=== PATIENT | female | born 1975 | race African-American/Black ===

== ENCOUNTER 2017-03-26 02:18 | Emergency (ER) | payer MEDICAID, OTHER ==
--- NOTE | 2017-03-26 02:36 | NUR ---
PT STATES SHE WANTS US TO FIX HER BROKEN TOOTH, PT ADVISED WE DO NOT FIX TEETH IN THE ER, PT STATES SHE WILL GO TO THE DENTIST IN THE MORNING INSTEAD
== END 2017-03-26 02:37 | disposition left against medical advice (07) ==
LOC: ER 02:23
DX: Z53.21 Procedure and treatment not carried out due to patient leaving prior to being seen by health care provider (principal)

== ENCOUNTER 2017-04-14 18:32 | Emergency (ER) | payer MEDICAID, OTHER ==
[~2017-04-14] VITALS: Ht 175.3 cm; Wt 59.9 kg
--- NOTE | 2017-04-14 18:40 | NUR ---
PT TO ED DT NECK, BACK, ELBOW, RIGHT KNEE PAIN SP FALL 1130 TODAY, NAD NOTED, VSS, WAITING FOR MD GILLIAN.
--- NOTE | 2017-04-14 19:20 | NUR ---
PA AT BS
[2017-04-14] MEDS ORDERED: IBUPROFEN 600 MG TABLET PO ONE ×2 (19:30→19:31)
[2017-04-14 20:15] VITALS: BP 120/80
--- NOTE | 2017-04-14 20:15 | NUR ---
Patient discharged to home in stable condition. Written and verbal after care instructions given. Patient verbalizes understanding of instruction.
== END 2017-04-14 20:16 | disposition home or self-care (01) ==
LOC: ER 18:37
DX: S16.1XXA Strain of muscle, fascia and tendon at neck level, initial encounter (principal); M54.9 Dorsalgia, unspecified; M25.561 Pain in right knee; M25.511 Pain in right shoulder; M25.521 Pain in right elbow; F17.200 Nicotine dependence, unspecified, uncomplicated; W10.8XXA Fall (on) (from) other stairs and steps, initial encounter; F10.10 Alcohol abuse, uncomplicated; Y93.89 Activity, other specified; Y92.89 Other specified places as the place of occurrence of the external cause; Y99.8 Other external cause status
CPT/HCPCS: 84703; 99282; A4606; Z7610

== ENCOUNTER 2017-06-29 09:40 | Emergency (ER) | payer OTHER ==
[~2017-06-29] VITALS: Ht 175.3 cm; Wt 62.1 kg
[2017-06-29 10:00] VITALS: BP 124/84
[2017-06-29] MEDS ORDERED: LIDOCAINE 0.5% HCL 50 ML VIAL ONE (11:39)
[2017-06-29] MEDS ORDERED: oxyCODONE/APAP (5/325 MG) 1 UDTAB TABLET ONE (11:54)
[2017-06-29] MEDS ORDERED: TDAP [DIPH/PERTUSSIS/TET] 0.5 ML VIAL IM ONE ×2 (12:00)
[2017-06-29] MEDS ORDERED: oxyCODONE/APAP (5/325 MG) 1 UDTAB TABLET PO ONE (12:00)
[2017-06-29] MEDS ORDERED: LIDOCAINE 1% INJ 50 ML MDV IJ ONE (12:00)
--- NOTE | 2017-06-29 12:15 | NUR ---
FOREIGN BODY BODY REMOVED BY LEONOR BARAJAS
--- NOTE | 2017-06-29 12:49 | NUR ---
Patient discharged to home in stable condition. Written and verbal after care instructions given. Patient verbalizes understanding of instruction.
== END 2017-06-29 12:50 | disposition home or self-care (01) ==
LOC: ER 09:42
DX: S60.452A Superficial foreign body of right middle finger, initial encounter (principal); F17.200 Nicotine dependence, unspecified, uncomplicated; X58.XXXA Exposure to other specified factors, initial encounter; Y93.89 Activity, other specified; Y92.89 Other specified places as the place of occurrence of the external cause; Y99.8 Other external cause status
CPT/HCPCS: 64450; 73140; 90471; 90715; 99284; 99406; A4606; J3490; Z7610

== ENCOUNTER 2017-07-01 14:40 | Inpatient (IN) | payer MEDICAID, OTHER ==
[~2017-07-01] VITALS: Ht 175.3 cm; Wt 62.1 kg
--- NOTE | 2017-07-01 14:50 | NUR ---
AAOX3, C/O RT HAND SWELLING W/ PAIN X >1WK S/P POKED BY CACTUS SEEN HERE 06/29/16 FOR SAME. RR IS EVEN AND UNLABORED WITH NAD NOTED. SKIN IS WARM AND DRY. SWAPNA ARNDT AT BS FOR EVAL.
[2017-07-01] MEDS ORDERED: IV NS 0.9% 1,000 ML BAG IV ONE (15:00)
[2017-07-01] MEDS ORDERED: VANCOMYCIN 1 GM in IV D5W 250 ML IV ONE (15:00)
[2017-07-01] MEDS ORDERED: PIPERACILLIN /TAZOBACTAM 3.375 G in IV D5W 50 ML IV ONE (15:00)
[2017-07-01] MEDS ORDERED: CLINDAMYCIN 600 MG in IV D5W 100 ML IV ONE (15:00)
[2017-07-01] MEDS ORDERED: ONDANSETRON HCL/PF 4 MG/2 ML VIAL IVP ONE (15:00)
[2017-07-01] MEDS ORDERED: MORPHINE SULFATE INJ 2 MG/ML DISP.SYRIN IV ONE (15:00)
[2017-07-01 15:20] LABS: BASOPHILS # (AUTO) 0.3 /CMM (0.0-0.2); BASOPHILS % (AUTO) 2.9 % (0.0-2.0); EOSINOPHILS # (AUTO) 0.1 /CMM (0.0-0.7); EOSINOPHILS % (AUTO) 0.7 % (0.0-6.0); HEMATOCRIT 36 % (33-45); HEMOGLOBIN 12.3 g/dL (11.5-14.8); LYMPHOCYTES # (AUTO) 1.3 /CMM (0.8-4.8); LYMPHOCYTES % (AUTO) 14.8 % (20.0-44.0); MEAN CORPUSCULAR HEMOGLOBIN 31 PG (26.0-33.0); MEAN CORPUSCULAR HGB CONC 34 g/dl (31.0-36.0); MEAN CORPUSCULAR VOLUME 91 fL (82-100); MONOCYTES # (AUTO) 0.3 /CMM (0.1-1.30); MONOCYTES % (AUTO) 3.8 % (2.0-12.0); NEUTROPHILS # (AUTO) 6.9 /CMM (1.8-8.9); NEUTROPHILS % (AUTO) 77.8 % (43.0-81.0); PLATELET COUNT (AUTO) 284 /CMM (150-450); RDW COEFFICIENT OF VARIATION 12.4 (11.5-15.0); RED BLOOD CELL COUNT(AUTO) 3.98 MIL/uL (4.0-5.2); WHITE BLOOD COUNT (AUTO) 8.9 K/uL (4.3-11.0)
[2017-07-01] MEDS ORDERED: MORPHINE SULFATE INJ 4 MG/ML DISP.SYRIN ONE (15:23)
[2017-07-01] MEDS ORDERED: ONDANSETRON HCL/PF 4 MG/2 ML VIAL ONE (15:23)
[2017-07-01 15:31] LABS: CREATININE 0.8 mg/dL (0.6-1.3); POTASSIUM 4.1 mmol/L (3.5-5.1)
[2017-07-01 15:35] LABS: INR 0.88 (0.87-1.13); PROTHROMBIN TIME 9.2 SECS (9.5-12.7)
[2017-07-01] MEDS ORDERED: CEPH-570 PO (15:47)
[2017-07-01] MEDS ORDERED: OXYC-133 PO (15:47)
[2017-07-01] MEDS ORDERED: ZOLPIDEM TARTRATE 5 MG TABLET PO PRN (17:30)
[2017-07-01] MEDS ORDERED: MAG HYDROX/AL HYDROX/SIMETH 30 ML UDC PO PRN (17:30)
[2017-07-01] MEDS ORDERED: MAGNESIUM HYDROXIDE 30 ML UDC PO PRN (17:30)
[2017-07-01] MEDS ORDERED: ACETAMINOPHEN 325 MG TABLET PO PRN (17:30)
[2017-07-01] MEDS ORDERED: MORPHINE SULFATE INJ 2 MG/ML DISP.SYRIN IV PRN (17:30)
[2017-07-01] MEDS ORDERED: CLINDAMYCIN IV RTU IN D5W 900 MG/50 ML PIGGYBACK IV SCH (17:30)
[2017-07-01] MEDS ORDERED: Z GUARD REMEDY 2 OZ OINT TP PRN (17:30)
[2017-07-01] MEDS ORDERED: ONDANSETRON HCL/PF 4 MG/2 ML VIAL IVP PRN (17:30)
[2017-07-01] MEDS ORDERED: FEE PK DOSING 1 MIN EA MC ONE (17:44)
--- NOTE | 2017-07-01 18:23 | NUR ---
FOOD TRAY SERVED AT
--- NOTE | 2017-07-01 18:43 | NUR ---
REPORT GIVEN TO MICHELLE RAMOS FOR CHRISSIE.
--- NOTE | 2017-07-01 18:53 | NUR ---
Patient is resting in er bed, no distress noted. ER bed in low position, side rails up. awaiting for MS bed assignment, will continue to monitor
[2017-07-01] MEDS ORDERED: HYDROMORPHONE 1 MG/1 ML DISP.SYRIN IV STA (20:39)
[2017-07-01] MEDS ORDERED: HYDROMORPHONE INJ 2 MG/ML DISP.SYRIN ONE (20:43)
--- NOTE | 2017-07-01 20:47 | NUR ---
report was given to RN for [place]
[2017-07-01] MEDS: CLINDAMYCIN 900 MG in IV D5W 50 ML IV SCH (21:00)
--- NOTE | 2017-07-01 21:10 | NUR ---
RN OPENING NOTES RECEIVED PATIENT FROM ER IN STABLE CONDITION. ALERT AND ORIENTED X4. VS STABLE. PATIENT C/O RIGHT HAND SWELLING WITH PAIN. S/P POKED BY CACTUS. NO SOB NOTED. RESPIRATIONS EVEN AND UNLABORED. BS X4. IV ACCESS AT LEFT AC 20 G PATENT AND INTACT, FLUSHING WELL WITH NS, NO REDNESS OR INFILTRATION NOTED. BED IN LOW AND LOCKED POSITION, SIDE RAILS X2. CALL LIGHT WITHIN EASY REACH. WILL CONTINUE TO MONITOR AND ASSESS DURING THE SHIFT.
[2017-07-01 22:00] VITALS: BP 103/64
[2017-07-01] MEDS ORDERED: PIPERACILLIN /TAZOBACTAM 3.375 G VIAL IV ONE (22:54)
[2017-07-01] MEDS ORDERED: VANCOMYCIN 1 GM VIAL ONE (22:56)
[2017-07-01] MEDS: PIPERACILLIN /TAZOBACTAM 3.375 G in IV D5W 50 ML IV SCH (23:41)
[2017-07-02] VITALS (9 sets, daily range): BP systolic 108–138; BP diastolic 64–81
[2017-07-02] MEDS: VANCOMYCIN 0.75 GM in IV D5W 250 ML IV SCH ×2 (00:34→09:00)
[2017-07-02] MEDS ORDERED: PIPERACILLIN /TAZOBACTAM 3.375 G VIAL IV ONE (04:47)
[2017-07-02] MEDS ORDERED: CLINDAMYCIN 900 MG/6 ML VIAL ONE (05:12)
[2017-07-02] MEDS: CLINDAMYCIN 900 MG in IV D5W 50 ML IV SCH ×3 (05:59→21:12)
[2017-07-02] MEDS: PIPERACILLIN /TAZOBACTAM 3.375 G in IV D5W 50 ML IV SCH ×3 (06:50→19:52)
--- NOTE | 2017-07-02 07:30 | NUR ---
RN CLOSING NOTES PATIENT IS SLEEPING INH BED, EASY TO AROUSE, ALERT AND ORIENTED X4. VS STABLE. NO SOB NOTED. RESPIRATIONS EVEN AND UNLABORED. IV ACCESS AT LEFT AC 20 G PATENT AND INTACT, NO REDNESS OR INFILTRATION NOTED. ALL NEEDS ARE MET AND MEDICATIONS GIVEN PER MD ORDER. BED IN LOW AND LOCKED POSITION, SIDE RAILS X2. CALL LIGHT WITHIN EASY REACH. WILL ENDORSE TO RN DAY SHIFT FOR CHRISSIE.
[2017-07-02 07:47] LABS: BASOPHILS % (AUTO) 0.5 % (0.0-2.0); EOSINOPHILS # (AUTO) 0.2 /CMM (0.0-0.7); EOSINOPHILS % (AUTO) 2.9 % (0.0-6.0); HEMATOCRIT 35 % (33-45); HEMOGLOBIN 11.8 g/dL (11.5-14.8); LYMPHOCYTES # (AUTO) 1.7 /CMM (0.8-4.8); MEAN CORPUSCULAR HEMOGLOBIN 31 PG (26.0-33.0); MEAN CORPUSCULAR HGB CONC 34 g/dl (31.0-36.0); MEAN CORPUSCULAR VOLUME 94 fL (82-100); MONOCYTES # (AUTO) 0.4 /CMM (0.1-1.30); MONOCYTES % (AUTO) 6.3 % (2.0-12.0); NEUTROPHILS # (AUTO) 4.2 /CMM (1.8-8.9); NEUTROPHILS % (AUTO) 64.3 % (43.0-81.0); PLATELET COUNT (AUTO) 256 /CMM (150-450); RDW COEFFICIENT OF VARIATION 13.6 (11.5-15.0); RED BLOOD CELL COUNT(AUTO) 3.74 MIL/uL (4.0-5.2); WHITE BLOOD COUNT (AUTO) 6.5 K/uL (4.3-11.0)
--- NOTE | 2017-07-02 08:05 | NUR ---
RN OPENING NOTES RECEIVED PATIENT RESTING COMFORTABLY IN BED. AOX4. RIGHT HAND SWELLING NOTED FOR RIGHT HAND FLEXOR TENOSYNOVITIS. CARE PLAN DISCUSSED WITH DR. QUINTERO. ORDERS GIVEN FOR CONSULT WITH DR. PEREZ. WILL CONTACT DR. PEREZ. IV ACCESS ON THE LEFT AC20G PATENT AND INTACT. RESPIRATIONS EVEN AND UNLABORED. NO ACUTE DISTRESS. PAIN IN THE RIGHT HAND. DENIES SOB AND CP. SATURATING ADEQUATELY ON RA. BED LOCKED IN THE LOWEST POSITION WITH SIDE RAIL UP X2. CALL LIGHT WITHIN REACH. WILL CONTINUE TO MONITOR, ASSESS AND EDUCATE PATIENT THROUGHOUT SHIFT.
[2017-07-02 08:18] LABS: CALCIUM, SERUM 8.5 mg/dL (8.5-10.1); CREATININE 0.8 mg/dL (0.6-1.3); MAGNESIUM 1.8 mg/dL (1.8-2.4); PHOSPHORUS 3.4 mg/dL (2.5-4.9); POTASSIUM 4.5 mmol/L (3.5-5.1)
[2017-07-02] MEDS ORDERED: BACITRACIN 50000 UNITS/VIAL ONE (11:56)
--- NOTE | 2017-07-02 11:56 | NUR ---
RN NOTES PATIENT TO GO TO OR FOR RIGHT HAND WASHOUT AND DEBRIDEMENT. DISCUSSED WITH DR. PEREZ. ALL CONSENT SIGNED. VERBALIZED UNDERSTANDING. PHARMACY STILL HAS NOT BROUGHT VANCO. CALLED PHARMACY AT 0900. PATIENT TO HAVE TEST PER OR POLICY. WILL CARRY OUT.
[2017-07-02] MEDS ORDERED: LIDOCAINE 0.5% HCL 50 ML VIAL ONE (12:37)
--- NOTE | 2017-07-02 12:45 | NUR ---
RN NOTES PATIENT TAKEN TO OR IN STABLE CONDITION. WILL WAIT FOR PATIENT TO RETURN.
[2017-07-02] MEDS ORDERED: MIDAZOLAM HCL 2 MG/2ML VIAL ONE (12:49)
[2017-07-02] MEDS ORDERED: FENTANYL PF 100MCG/2ML AMPUL ONE (12:49)
[2017-07-02] MEDS ORDERED: ANESTHESIA TRAY IN PYXIS 1 EA TRAY MC ONE (12:55)
[2017-07-02] MEDS ORDERED: LIDOCAINE 2%-EPI 1:100,000 30 ML VIAL IJ ONE (13:00)
[2017-07-02] MEDS ORDERED: BUPIVACAINE 0.5 % PF 150 MG/30 ML VIAL ONE (13:23)
--- NOTE | 2017-07-02 13:26 | NUR ---
RN NON ADMIN NOTES NO VANCO BROUGHT TO THE FLOOR. VANCO SENT TO THE OR. SPOKE WITH PHARMACISTS ANASTACIA. RUPA TAKEN TO OR. ALL MEDS GIVEN IN OR. WILL FOLLOW UP.
--- NOTE | 2017-07-02 15:12 | NUR ---
MICHELLE MARTINEZ NOTES ZOSYN GIVEN IN THE ER. Addendum: 07/02/17 at 1513 by SAQIB HASSAN RN ZOSYN GIVEN IN THE OR.
--- NOTE | 2017-07-02 19:35 | NUR ---
MS RN OPENING NOTES RECEIVED PT IN BED AWAKE,ALERT,VERBALLY RESPONSIVE,ON ROOM AIR, RESPIRATIONS EVEN,UNLABORED,NO SOB NOTED,DENIES ANY PAIN OR DISCOMFORT AT THIS TIME.IV SITE INTACT,PATENT.CALL LIGHT WITHIN REACH. ATTENDED ALL NEEDS. WILL CONTINUE TO MONITOR ACCORDINGLY.
[2017-07-02] MEDS ORDERED: VANCOMYCIN 0.75 GM in IV D5W 250 ML IV SCH (21:00)
[2017-07-02] MEDS: MORPHINE SULFATE INJ 4 MG/ML DISP.SYRIN IV PRN (21:13)
--- NOTE | 2017-07-02 22:57 | NUR ---
RN CLOSING NOTES PATIENT RESTING COMFORTABLY IN BED. AOX4. RIGHT HAND BANDAGED AND WRAPPED. IV ACCESS ON THE LEFT AC 20G PATENT AND INTACT. RESPIRATIONS EVEN AND UNLABORED. NO ACUTE DISTRESS. PAIN IN THE RIGHT HAND. DENIES SOB AND CP. SATURATING ADEQUATELY ON RA. BED LOCKED IN THE LOWEST POSITION WITH SIDE RAIL UP X2. CALL LIGHT WITHIN REACH. WILL ENDORSE TO NIGHT RN FOR CHRISSIE.
[2017-07-03] MEDS: PIPERACILLIN /TAZOBACTAM 3.375 G in IV D5W 50 ML IV SCH ×4 (00:36→18:52)
[2017-07-03] MEDS: CLINDAMYCIN 900 MG in IV D5W 50 ML IV SCH ×3 (05:08→22:36)
[2017-07-03] MEDS: MORPHINE SULFATE INJ 4 MG/ML DISP.SYRIN IV PRN ×4 (06:52→23:00)
--- NOTE | 2017-07-03 07:05 | NUR ---
MS RN CLOSING NOTES PT IN BED,OM ROOM AIR NO SOB,NO APPARENT DISTRESS NOTED.COMPLAINED OF PAIN MORPHINE 2MG GIVEN ORDERED.CALL LIGHT WITHIN REACH. IV SITE INTACT, PATENT,ATTENDED ALL NEEDS.WILL CONTINUE TO MONITOR
--- NOTE | 2017-07-03 07:25 | NUR ---
RN OPENING NOTES RECEIVED PATIENT RESTING COMFORTABLY IN BED. AOX4. RIGHT HAND IN ADITYA BANDAGE. IV ACCESS ON THE LEFT AC20G PATENT AND INTACT. RESPIRATIONS EVEN AND UNLABORED. NO ACUTE DISTRESS. PAIN IN THE RIGHT HAND. DENIES SOB AND CP. SATURATING ADEQUATELY ON RA. BED LOCKED IN THE LOWEST POSITION WITH SIDE RAIL UP X2. CALL LIGHT WITHIN REACH. WILL CONTINUE TO MONITOR, ASSESS AND EDUCATE PATIENT THROUGHOUT SHIFT.
[2017-07-03 08:00] VITALS: BP 106/58
[2017-07-03 08:36] LABS: CREATININE 0.9 mg/dL (0.6-1.3); POTASSIUM 4.2 mmol/L (3.5-5.1)
[2017-07-03 08:37] LABS: BASOPHILS % (AUTO) 0.4 % (0.0-2.0); EOSINOPHILS % (AUTO) 0.1 % (0.0-6.0); HEMATOCRIT 36 % (33-45); LYMPHOCYTES # (AUTO) 1.7 /CMM (0.8-4.8); LYMPHOCYTES % (AUTO) 15.5 % (20.0-44.0); MEAN CORPUSCULAR HEMOGLOBIN 31 PG (26.0-33.0); MEAN CORPUSCULAR HGB CONC 33 g/dl (31.0-36.0); MEAN CORPUSCULAR VOLUME 94 fL (82-100); MONOCYTES # (AUTO) 0.6 /CMM (0.1-1.30); MONOCYTES % (AUTO) 5.4 % (2.0-12.0); NEUTROPHILS # (AUTO) 8.5 /CMM (1.8-8.9); NEUTROPHILS % (AUTO) 78.6 % (43.0-81.0); PLATELET COUNT (AUTO) 304 /CMM (150-450); RDW COEFFICIENT OF VARIATION 13.8 (11.5-15.0); RED BLOOD CELL COUNT(AUTO) 3.85 MIL/uL (4.0-5.2); WHITE BLOOD COUNT (AUTO) 10.9 K/uL (4.3-11.0)
[2017-07-03] MEDS: HYDROCODONE/APAP 5/325MG 1 EACH TABLET PO PRN ×2 (09:39→13:19)
--- NOTE | 2017-07-03 14:00 | NUR ---
RN NOTES IV DISLODGED. NEW IV PLACED IN THE RIGHT UPPER ARM PATIENT TOLERATED. ONE ATTEMPT. 20G.
--- NOTE | 2017-07-03 14:22 | NUR ---
Social service consult requested by Dr. Bernstein for home health and legality issues. Pt. is a 41 year old female who was admitted to [facility] for Flexor Tenosynovitis. SW met with pt. bedside. Pt. is alert and oriented x 4. Pt. informed SW that she is having legal issues with her property management company and has to evict by July 25, 2017. Pt. would like to extend her stay for another few weeks. SW informed pt. she can give her referrals to legal aids who might be able to assist her. SW gave pt. legal referrals to the following: [facility] [address] [place] [address] [employer] [email or web address] [facility] [address] [phone] [employer] [email or web address] HOUSING, RENTAL& HABITABILITY PROBLEMS: [facility] [address] [address] www.[employer] [address] [place] [address] (See website for more locations and hours) [email or web address] [facility] [address] [facility] [address] [email or web address] [place] [employer] [address] [place] [address] (See website for more locations and hours) [email or web address] [employer] [facility] [address] [facility] [address] [email or web address] [facility] [employer] Advisor [address] [address] www.[employer] No other social service needs are required at this time. SW is available if needed. BLANCA informed renal case manager Geetha Faustin regarding pt. wanting home health upon discharge.
[2017-07-03] MEDS: LACTOBACILLUS RHAMNOSUS GG 1 EACH CAP.SPRINK PO SCH (16:13)
[2017-07-03] MEDS ORDERED: HYDROMORPHONE INJ 2 MG/ML DISP.SYRIN IV PRN (18:00)
--- NOTE | 2017-07-03 18:00 | NUR ---
RN NOTES MD ORDERS GIVEN TO GIVE MORPHINE ONE TIME 2MG IV FOR SEVERE PAIN. WILL PLACE ORDERS GIVEN.
[2017-07-03] MEDS ORDERED: MORPHINE SULFATE INJ 4 MG/ML DISP.SYRIN IV ONE (19:00)
--- NOTE | 2017-07-03 19:15 | NUR ---
RN OPENING NOTES PT RESTING IN BED. PT SLEEPING BUT RESPONDS TO NAME. NO COMPLAINTS OF SOB, PAIN, OR DISCOMFORT AT THIS TIME. PT HAS A RIGHT UPPER ARM IV #20, INTACT AND PATENT. PT ARM KEPT ELEVATED. SAFETY PRECAUTIONS IN PLACE, BED IN LOW, LOCKED POSITION, X2 SIDERAILS UP, CALL LIGHT WITHIN REACH. WILL CONTINUE TO MONITOR.
--- NOTE | 2017-07-03 19:40 | NUR ---
RN CLOSING NOTES PATIENT RESTING COMFORTABLY IN BED. AOX4. RIGHT HAND BANDAGED AND WRAPPED. IV ACCESS ON THE RIGHT UPPER ARM 20G PATENT AND INTACT. RESPIRATIONS EVEN AND UNLABORED. NO ACUTE DISTRESS. PAIN CONTROLLED IN THE RIGHT HAND. DENIES SOB AND CP. SATURATING ADEQUATELY ON RA. BED LOCKED IN THE LOWEST POSITION WITH SIDE RAIL UP X2. CALL LIGHT WITHIN REACH. ALL NEEDS MET. ALL MEDS GIVEN APPROPRIATE. WILL ENDORSE TO NIGHT RN FOR CHRISSIE.
[2017-07-03 20:00] VITALS: BP 92/52
[2017-07-03] MEDS ORDERED: BISACODYL (5 MG) 5 MG TABLET.DR PO PRN (20:30)
[2017-07-03] MEDS ORDERED: diphenhydrAMINE HCL ELIX 25 MG/10 ML UDC PO PRN (20:30)
[2017-07-03 23:04] VITALS: BP 106/71
[2017-07-04] MEDS: PIPERACILLIN /TAZOBACTAM 3.375 G in IV D5W 50 ML IV SCH ×3 (00:14→12:25)
[2017-07-04] MEDS: CLINDAMYCIN 900 MG in IV D5W 50 ML IV SCH ×3 (05:01→21:44)
--- NOTE | 2017-07-04 07:15 | NUR ---
RN OPENING NOTES PT RESTING IN BED. PT SLEEPING BUT RESPONDS TO NAME. NO COMPLAINTS OF SOB, PAIN, OR DISCOMFORT AT THIS TIME. PT HAS A RIGHT UPPER ARM IV #20, INTACT AND PATENT. PT ARM KEPT ELEVATED. SAFETY PRECAUTIONS IN PLACE, BED IN LOW, LOCKED POSITION, X2 SIDERAILS UP, CALL LIGHT WITHIN REACH. WILL ENDORSE TO DAY SHIFT NURSE FOR CONTINUITY OF CARE. Addendum: 07/04/17 at 0742 by HELGA BENITEZ RN RN CLOSING NOTES
[2017-07-04 08:00] VITALS: BP 99/66
[2017-07-04] MEDS: DOCUSATE SODIUM 100 MG CAPSULE PO SCH ×2 (08:10→17:41)
[2017-07-04] MEDS: LACTOBACILLUS RHAMNOSUS GG 1 EACH CAP.SPRINK PO SCH ×2 (08:11→17:41)
[2017-07-04] MEDS: HYDROCODONE/APAP 5/325MG 1 EACH TABLET PO PRN ×2 (08:11→12:26)
--- NOTE | 2017-07-04 11:17 | NUR ---
RN NOTES PATIENT ALERT AND ORIENTED X3, PATIENT VERBALIZING WANTING TO GO HOME TODAY D/T PATIENT WORRYING ABOUT THE THINGS NEEDED TO BE DONE AT HOME. PATIENT C/O PAIN ON RIGHT HAND , NORCO AND TYLENOL WAS GIVEN THIS AM. UNABLE TO GIVE MORPHINE AT THIS TIME DUE TO PATIENT'S LOW BP 96/56, PATIENT ASYMPTOMATIC. WOUND DRESSING CHANGED ON RIGHT HAND BY VICKI RUFF. NEEDS ATTENDED AND MET, CALL LIGHT WITHIN REACH, WILL CONTINUE TO MONITOR.
[2017-07-04 16:00] VITALS: BP 106/66
[2017-07-04] MEDS ORDERED: CEFTRIAXONE 1 G in IV D5W 50 ML IV SCH (16:30)
[2017-07-04] MEDS: MORPHINE SULFATE INJ 4 MG/ML DISP.SYRIN IV PRN ×2 (18:25→23:25)
--- NOTE | 2017-07-04 19:15 | NUR ---
RN NOTES RECEIVED PT IN BED, AWAKE, A/O X 4. ABLE TO VERBALIZE NEEDS. NO DISTRESS NOR SOB NOTED, BREATHING EVEN AND UNLABORED. NO C/O PAIN OR DISCOMFORT AT THIS TIME.MARGARET IV SITE AND MIDLINE ON NORMA PATENT AND INTACT , NO S/S OF INFILTRATION NOTED. RIGHT HAND WITH CLEAN AND INTACT DRESSING. ALL NEEDS ATTENDED AND MET, CALL LIGHT WITHIN REACH, SAFETY PRECAUTIONS OBSERVED. WILL CONT TO MONITOR.
--- NOTE | 2017-07-04 19:20 | NUR ---
RN NOTES PATIENT ALERT AND ORIENTED X4, NO S/SX OF DISTRESS NOTED, BREATHING EVEN AND UNLABORED, DENIES PAIN AT THIS TIME, MORPHINE EFFECTIVE, PATIENT HAD BM X1, PIV ON MARGARET AND MIDLINE ON NORMA PATENT AND INTACT, NEEDS ATTENDED AND MET, CALL LIGHT WITHIN REACH, ENDORSED TO [employer]ILER HOUSE MECHANIC FOR CHRISSIE.
[2017-07-04 20:00] VITALS: BP 107/51
[2017-07-05] MEDS: CLINDAMYCIN 900 MG in IV D5W 50 ML IV SCH ×2 (04:43→12:02)
[2017-07-05] MEDS: MORPHINE SULFATE INJ 4 MG/ML DISP.SYRIN IV PRN ×2 (04:58→14:10)
--- NOTE | 2017-07-05 07:06 | NUR ---
RN NOTES PT IN BED, RESTING AT THIS TIME, AROUSES EASILY, A/O X 4. ABLE TO VERBALIZE NEEDS. NO DISTRESS NOR SOB NOTED, BREATHING EVEN AND UNLABORED. NO C/O PAIN OR DISCOMFORT AT THIS TIME.MARGARET IV SITE AND MIDLINE ON NORMA PATENT AND INTACT , NO S/S OF INFILTRATION NOTED. RIGHT HAND WITH CLEAN AND INTACT DRESSING. ALL NEEDS ATTENDED AND MET, CALL LIGHT WITHIN REACH, SAFETY PRECAUTIONS OBSERVED. WILL ENDORSE TO NEXT SHIFT FOR CHRISSIE..
[2017-07-05 08:00] VITALS: BP 96/55
[2017-07-05] MEDS: DOCUSATE SODIUM 100 MG CAPSULE PO SCH ×2 (09:41→17:15)
[2017-07-05] MEDS: LACTOBACILLUS RHAMNOSUS GG 1 EACH CAP.SPRINK PO SCH ×2 (09:41→17:15)
--- NOTE | 2017-07-05 12:08 | NUR ---
iv clindamycin given by MICHELLE phipps.
--- NOTE | 2017-07-05 15:08 | NUR ---
patient was screaming to be disconnected from i.v. and i granted her request. Patient left her room unpatiently to go have a cigarette on hospital grounds. Charge nurse aware.
[2017-07-05 16:00] VITALS: BP 100/61
[2017-07-05] MEDS ORDERED: VANC1PLA10 IV (16:12)
[2017-07-05] MEDS ORDERED: clindamycin IV (16:28)
[2017-07-05] MEDS ORDERED: [UNRECOGNIZED DRUG - OTHER] IV (16:34)
[2017-07-05] MEDS ORDERED: LACT1CAP57 PO (16:34)
[2017-07-05] MEDS ORDERED: CLIN900P10 IV (16:37)
[2017-07-05] MEDS ORDERED: VANCOMYCIN 1 GM in IV D5W 250 ML IV ONE (17:00)
--- NOTE | 2017-07-05 19:30 | NUR ---
MS RN NOTES: RECEIVED PT FROM MERCHANDISE CLERK. PT SIGNED PAPER AND ALL LABS AND PRESCRIPTION PLACED IN FOLDER BY MERCHANDISE CLERK. AWAITING FOR PT'S DAUGHTER TO COME AND PICK HER UP. PT IN STABLE POSITION. PT APPEARS TO BE UPSET. CALL LIGHT WITHIN PT'S REACH. BED KEPT IN LOW, LOCKED POSITION, AND SIDE RAILS X 2UP. WILL CONTINUE TO MONITOR PT.
--- NOTE | 2017-07-05 20:01 | NUR ---
MS RN NOTES: IV REMOVED ON R AC. PT LEFT IN STABLE CONDITION AND DISCHARGED HOME. DAUGHTER PICKED HER UP. WAS BROUGHT DOWNSTAIRS AND ESCORTED TO CAR.
[2017-07-06] MEDS ORDERED: VANCOMYCIN 0.75 GM in IV D5W 250 ML IV SCH (01:00)
== END 2017-07-05 20:00 | disposition home health service (06) | DRG 364 ==
LOC: ER 14:42 → TRANSITION 16:07 → TELE 20:43 → MED 22:50
PROVIDERS: ADMIT Family Medicine; ATTEND Family Medicine
DX: L03.011 Cellulitis of right finger (principal); L02.511 Cutaneous abscess of right hand; M65.88 Other synovitis and tenosynovitis, other site; F17.210 Nicotine dependence, cigarettes, uncomplicated; Z87.440 Personal history of urinary (tract) infections; B95.62 Methicillin resistant Staphylococcus aureus infection as the cause of diseases classified elsewhere
CPT/HCPCS: 36415; 71045-TC; 80048-TC; 80061-TC; 80202-TC; 83605-TC; 83735-TC; 84100-TC; 84703-TC; 85025-TC; 85730-TC; 87040-TC; 87070-TC; 87081-TC; A4606; A6402; A6403; J0696; J1100; J1170; J2250; J2270; J2370; J2405; J2543; J2704; J3010; J3370; J3490; J7050; J7060; Z7610